=== PATIENT | male | born 1995 | race Caucasian/White ===

== ENCOUNTER 2016-10-19 10:49 | Emergency (ER) | payer BC ==
[~2016-10-19] VITALS: Ht 170.2 cm; Wt 127.5 kg
[~2016-10-19 10:49] MED LIST: AFRIN15 ML NAS; ANAPROX DS550 MG PO; CIPRODEX OTIC7.5 ML AD; IBUPROFEN800 MG PO; PROVENTIL HFA6.7 GM INH; ROBITUSSIN COU118 ML PO; ZITHROMAX500 MG PO
== END 2016-10-19 11:01 | disposition home or self-care (01) ==
LOC: ED 10:49
DX: Z00.8 Encounter for other general examination (principal)

== ENCOUNTER 2020-10-05 18:38 | Emergency (ER) | payer SELFPAY ==
[~2020-10-05] VITALS: Ht 170.2 cm; Wt 154.2 kg
[~2020-10-05 18:38] MED LIST changes: +GABAPENTIN600 MG PO; +HYDROCODON-ACE1 EA11 PO; +NARCAN4 MG NAS; +SENNA LAX8.6 MG PO
--- OUTSIDE RECORDS SUMMARY | 2020-10-05 18:46 | XMS ---
PreManage Notification: NORMAN CUNNINGHAM Security Mobile Qa Tester Events No recent Security Events currently on file CRITERIA MET - Group Notification CARE PROVIDERS There are no care providers on record at this time. Kajal has no Care Guidelines for this patient. Sowmya VISIT COUNT (12 MO.) 1 BRI Hunter TOTAL 1 NOTE: Visits indicate total known visits. ED/C VISIT TRACKING (12 MO.) 10/05/2020 18:39 BRI Yuan OR TYPE: Emergency COMPLAINT: - COUGH, FEVER, STUFFY NOSE INPATIENT VISIT TRACKING (12 MO.) No inpatient visits to display in this time frame [id number]
--- NOTE | 2020-10-07 14:33 | EKG ---
[facility] [address] [facility] [place], [place] [address] Signed Normal sinus rhythm Nonspecific T wave abnormality Abnormal ECG No previous ECGs available Confirmed by MINH GOOD DO ([id number]) on 10/07/2020 2:32:54 PM Electronically Signed By: MINH GOOD DO 10/07/20 1433 PATIENT NAME: MARISA YOUNGNORMAN STEVEN Electrocardiogram DATE OF : [birth year] PHYSICIAN: MINH GOOD DO REPORT #: [id number] REPORT IS CONFIDENTIAL AND NOT TO BE RELEASED WITHOUT AUTHORIZATION
== END 2020-10-05 21:09 | disposition home or self-care (01) ==
LOC: ED 18:38
DX: U07.1 COVID-19 (principal); J40 Bronchitis, not specified as acute or chronic; I10 Essential (primary) hypertension; Z88.5 Allergy status to narcotic agent
CPT/HCPCS: 71045; 80053; 81001; 83605; 83735; 84484; 85025; 93005; 93010; 94640; 99285-25; C9803; U0003